=== PATIENT | male | born 1945 | race Caucasian/White ===

== ENCOUNTER 2017-07-17 20:35 | Emergency (ER) | payer MEDICARE ==
[2017-07-17 21:23] VITALS: BP 151/76
--- NOTE | 2017-07-17 21:45 | UC ---
Knee Pain HPI - HPI Summary HPI Summary: Stepped wrong off truck bumper 1 week ago. Now worsening posterior knee pain extending down the calf into the foot. - History of Current Complaint Chief Complaint: UCLowerExtremity Stated Complaint: LEFT KNEE/LEG PAIN Time Seen by Provider: 07/17/17 21:36 Hx Obtained From: Patient Onset/Duration: Sudden Onset, Worse Since - gradually Severity Currently: Severe Pain Intensity: 8 Character: Aching Aggravating Factor(s): Movement, Weight Bearing, Prolonged Standing, Stairs - Allergies/Home Medications Allergies/Adverse Reactions: Allergies Allergy/AdvReac Type Severity Reaction Status Date / Time No Known Allergies Allergy Verified 07/17/17 21:24 Home Medications: Home Medications Finasteride 0.5 mg PO QAM 07/17/17 [History Confirmed 07/17/17] Ibuprofen TAB* [Motrin TAB* 800 MG] 800 mg PO Q8H PRN 07/17/17 [History Confirmed 07/17/17] Losartan/Hydrochlorothiazide [Losartan Potassium/Hydroc 100-12.5 mg] 1 tab PO DAILY 07/17/17 [History Confirmed 07/17/17] Multivitamin With C 1 tab PO DAILY 07/17/17 [History Confirmed 07/17/17] metFORMIN* [Glucophage 500 MG TAB *] 500 mg PO DAILY 07/17/17 [History Confirmed 07/17/17] PMH/Surg Hx/FS Hx/Imm Hx Cardiovascular History: Hypertension - Surgical History Surgical History: Yes Surgery Procedure, Year, and Place: Back, left arm wire and removal - Social History Occupation: Retired Lives: With Family Alcohol Use: Occasionally Substance Use Type: None Smoking Status (MU): Former Smoker Review of Systems Musculoskeletal: Arthralgia Is Patient Immunocompromised?: No All Other Systems Reviewed And Are Negative: Yes Physical Exam Triage Information Reviewed: Yes Appearance: Well-Appearing, Well-Nourished, Pain Distress - with walking Vital Signs: Initial Vital Signs Temp 98.6 F 07/17/17 21:10 Pulse 62 07/17/17 21:10 Resp 18 07/17/17 21:10 BP 151/76 07/17/17 21:10 Pulse Ox 97 07/17/17 21:10 Vital Signs Reviewed: Yes Eyes: Positive: Conjunctiva Clear Neck exam: Normal Respiratory Exam: Normal Cardiovascular Exam: Normal Musculoskeletal: Positive: No Edema - and negative parminder's left calf, ROM Limited @ - left knee, flexion causing pain., Other: - No instability left knee. Tenderness lateral posterior knee. Tender over the peroneus muscles on the left lateral gambino. Neurological Exam: Normal Psychological Exam: Normal Skin Exam: Normal Knee Pain Course/Dx - Differential Dx/Diagnosis Differential Diagnosis/HQI/PQRI: Sprain, Strain, Tendonitis Provider Diagnoses: Knee sprain. Muscle strain. Discharge - Sign-Out/Discharge Documenting (check all that apply): Discharge/Admit/Transfer - Discharge Plan Condition: Stable Disposition: HOME Patient Education Materials: Knee Sprain (ED), Muscle Strain (ED) Referrals: ENRIQUE Goldberg [Primary Care Provider] - Chris Flynn MD [Medical Doctor] - 2 Days (knee sprain evaluation) Additional Instructions: Use the ignacio wrap for comfort and stay off the knee. - Billing Disposition and Condition Condition: STABLE Disposition: HOME
== END 2017-07-17 22:05 | disposition home or self-care (01) ==
LOC: UCCORT 20:35
DX: S83.92XA Sprain of unspecified site of left knee, initial encounter (principal); S86.812A Strain of other muscle(s) and tendon(s) at lower leg level, left leg, initial encounter; X50.0XXA Overexertion from strenuous movement or load, initial encounter; Y93.39 Activity, other involving climbing, rappelling and jumping off; Y92.9 Unspecified place or not applicable; Z87.891 Personal history of nicotine dependence; I10 Essential (primary) hypertension
CPT/HCPCS: 99211; G0463